=== PATIENT | male | born 1960 | race Caucasian/White ===

== ENCOUNTER 2018-11-09 06:51 | Inpatient (IN) | payer MEDICARE, BC, OTHER ==
[2018-11-09 07:33] LABS: ADD MAN DIFF? NO
[2018-11-09 07:43] LABS: ABNORMAL IP MESSAGE 1; BASOPHIL # 0.1 10^3/ul (0.0-0.1); BASOPHILS % 0.5 % (0.0-2.0); EOSINOPHILS # 0.5 10^3/ul (0.0-0.5); EOSINOPHILS % 3.6 % (0.0-7.0); HEMATOCRIT 24.4 % (42.0-52.0); HEMOGLOBIN 7.4 g/dl (14.0-18.0); LYMPHOCYTES # 1.2 10^3/ul (0.8-2.9); LYMPHOCYTES % 9.1 % (15.0-51.0); MEAN CORPUSCULAR HEMOGLOBIN 27.6 pg (29.0-33.0); MEAN CORPUSCULAR HGB CONC 30.3 g/dl (32.0-37.0); MEAN PLATELET VOLUME 9.9 fl (7.4-10.4); MONOCYTES % 7.1 % (0.0-11.0); NEUTROPHIL # 10.6 10^3/ul (1.6-7.5); PLATELET COUNT 621 10^3/UL (140-415); POSITIVE DIFF @See below; RED BLOOD COUNT 2.68 10^6/ul (4.70-6.10); RED CELL DISTRIBUTION WIDTH 23.9 % (11.5-14.5)
[2018-11-09 07:43] LABS: WHITE BLOOD COUNT 13.5 10^3/ul (4.8-10.8)
[2018-11-09 08:00] LABS: ALANINE AMINOTRANSFERASE 24 IU/L (13-69); ALBUMIN 3.6 g/dl (3.3-4.9); ALBUMIN/GLOBULIN RATIO 0.67; ALKALINE PHOSPHATASE 1457 IU/L (42-121); ANION GAP 15 (5-13); ASPARTATE AMINO TRANSFERASE 62 IU/L (15-46); BILIRUBIN,INDIRECT 0.6 mg/dl (0-1.1); BILIRUBIN,TOTAL 2.1 mg/dl (0.2-1.3); BLOOD UREA NITROGEN 54 mg/dl (7-20); CALCIUM 8.7 mg/dl (8.4-10.2); CARBON DIOXIDE 22 mmol/L (21-31); CHLORIDE 100 mmol/L (97-110); CREATININE 6.32 mg/dl (0.61-1.24); Estimated GFR 9 mL/min (>60); GLUCOSE 126 mg/dl (70-220); INR 1.03; PROTIME 13.6 Sec (11.9-14.9); PT RATIO 1.1; SODIUM 137 mmol/L (135-144); TOTAL PROTEIN 8.9 g/dl (6.1-8.1)
[2018-11-09 08:01] LABS: PARTIAL THROMBOPLASTIN TIME 38.9 Sec (23.0-35.0)
[2018-11-09 10:27] LABS: IMMEDIATE SPIN CROSSMATCH 1 2
[2018-11-09] MEDS ORDERED: ACETAMINOPHEN 325 MG TAB PO ×2 (11:30→14:30)
[2018-11-09] MEDS ORDERED: ONDANSETRON 4 MG INJ IV (11:30)
[2018-11-09 13:18] LABS: IRON 48 ug/dl (35-150)
[2018-11-09 13:27] LABS: % IRON SATURATION 24 % SAT (22-52); TOTAL IRON BINDING CAPACITY 204 ug/dl (241-421)
[2018-11-09 14:22] LABS: HAAIG REFLEX REFLEX FILED
[2018-11-09] MEDS ORDERED: NACL 0.9% 3 ML SYG IV (14:30)
[2018-11-09] MEDS ORDERED: HYDROCODONE/APAP (5/325) TAB PO (14:30)
[2018-11-09 14:35] LABS: LACTATE DEHYDROGENASE 851 IU/L (313-618)
[2018-11-09 15:08] LABS: HEPATITIS B SURFACE ANTIGEN NEGATIVE (NEGATIVE)
[2018-11-09 15:25] LABS: HEPATITIS B CORE ANTIBODY NEGATIVE (NEGATIVE); HEPATITIS C VIRAL ANTIBODY NEGATIVE (NEGATIVE)
[2018-11-09 15:41] LABS: RETICULOCYTE COUNT % 5.3 % (0.5-1.5)
[2018-11-09 15:41] LABS: RETICULOCYTE RBC 2.65
[2018-11-09 16:44] LABS: ALPHA FETOPROTEIN 1.08 IU/L (0.00-7.21)
[2018-11-09] MEDS: hydrALAzine 20 MG INJ IV (16:45)
[2018-11-09 16:50] LABS: B-TYPE NATRIURETIC PEPTIDE 105000 PG/ML (0-125)
[2018-11-09] MEDS: morphine 2 MG INJ IV (17:34)
[2018-11-09 17:36] LABS: CARCINOEMBRYONIC ANTIGEN 5.4 ng/ml (0.0-5.0)
[2018-11-09] MEDS: CALCIUM ACETATE 667 MG CAP PO (18:16)
[2018-11-09] MEDS ORDERED: IODIXANOL LOCM 100 ML BTL (20:34)
[2018-11-09] MEDS ORDERED: SOD CHLORIDE 0.9% 100 ML (20:34)
[2018-11-09] MEDS: LABETALOL 100 MG TAB PO (22:02)
[2018-11-10] MEDS: PANTOPRAZOLE (EC) 40 MG TAB PO (06:00)
[2018-11-10 07:03] LABS: ADD MAN DIFF? NO
[2018-11-10 07:14] LABS: WHITE BLOOD COUNT 13.8 10^3/ul (4.8-10.8)
[2018-11-10 07:15] LABS: BASOPHIL # 0.1 10^3/ul (0.0-0.1); BASOPHILS % 0.5 % (0.0-2.0); EOSINOPHILS # 0.4 10^3/ul (0.0-0.5); EOSINOPHILS % 2.8 % (0.0-7.0); HEMATOCRIT 27.1 % (42.0-52.0); HEMOGLOBIN 8.5 g/dl (14.0-18.0); LYMPHOCYTES # 0.9 10^3/ul (0.8-2.9); LYMPHOCYTES % 6.8 % (15.0-51.0); MEAN CORPUSCULAR HEMOGLOBIN 28.1 pg (29.0-33.0); MEAN CORPUSCULAR HGB CONC 31.4 g/dl (32.0-37.0); MEAN CORPUSCULAR VOLUME 89.4 fl (82.0-101.0); MEAN PLATELET VOLUME 9.7 fl (7.4-10.4); MONOCYTE # 0.9 10^3/ul (0.3-0.9); MONOCYTES % 6.3 % (0.0-11.0); NEUTROPHIL # 11.4 10^3/ul (1.6-7.5); PLATELET COUNT 510 10^3/UL (140-415); RED BLOOD COUNT 3.03 10^6/ul (4.70-6.10); RED CELL DISTRIBUTION WIDTH 20.7 % (11.5-14.5)
[2018-11-10 07:26] LABS: INR 1.13; PROTIME 14.6 Sec (11.9-14.9); PT RATIO 1.1
[2018-11-10 07:27] LABS: PARTIAL THROMBOPLASTIN TIME 36.6 Sec (23.0-35.0)
[2018-11-10 07:31] LABS: CHOL/HDL RATIO 11.9 RATIO; CHOLESTEROL 310 mg/dl (100-200); HDL CHOLESTEROL 26 mg/dl (28-71); LDL CHOLESTEROL,CALCULATED 260 mg/dl; MAGNESIUM 2.4 mg/dl (1.7-2.5); TRIGLYCERIDES 121 mg/dl (0-149)
[2018-11-10 07:31] LABS: PHOSPHORUS 10.1 mg/dl (2.5-4.9)
[2018-11-10 07:32] LABS: ALANINE AMINOTRANSFERASE 22 IU/L (13-69); ALBUMIN 3.1 g/dl (3.3-4.9); ALBUMIN/GLOBULIN RATIO 0.67; ALKALINE PHOSPHATASE 930 IU/L (42-121); ANION GAP 17 (5-13); ASPARTATE AMINO TRANSFERASE 45 IU/L (15-46); BILIRUBIN,INDIRECT 0.5 mg/dl (0-1.1); BILIRUBIN,TOTAL 2.5 mg/dl (0.2-1.3); BLOOD UREA NITROGEN 65 mg/dl (7-20); CALCIUM 8.3 mg/dl (8.4-10.2); CARBON DIOXIDE 19 mmol/L (21-31); CHLORIDE 102 mmol/L (97-110); CREATININE 7.33 mg/dl (0.61-1.24); Estimated GFR 8 mL/min (>60); GLUCOSE 83 mg/dl (70-220); POTASSIUM 5.6 mmol/L (3.5-5.1); SODIUM 138 mmol/L (135-144); TOTAL PROTEIN 7.7 g/dl (6.1-8.1)
[2018-11-10 07:49] LABS: FREE T4 (FREE THYROXINE) 1.95 ng/dl (0.64-1.79)
[2018-11-10] MEDS: CALCIUM ACETATE 667 MG CAP PO ×3 (07:55→17:55)
[2018-11-10 08:12] LABS: CANCER ANTIGEN 19-9 < 1.4 U/ml (0.0-37.0)
[2018-11-10] MEDS: NIFEdipine (XL) 30 MG TAB PO (08:35)
[2018-11-10] MEDS: AMLODIPINE 5 MG TAB PO (08:37)
[2018-11-10] MEDS: LABETALOL 100 MG TAB PO (08:38)
[2018-11-10 11:48] LABS: HAPTOGLOBIN <8 mg/dL (43-212)
[2018-11-10] MEDS ORDERED: PROPOFOL 200 MG INJ (13:20)
[2018-11-10] MEDS ORDERED: CEFAZOLIN 1 GM INJ (13:20)
[2018-11-10] MEDS ORDERED: PROPOFOL 40 ML (13:22)
[2018-11-10] MEDS ORDERED: FENTAnyl 50 MCG/ML VIAL (13:22)
[2018-11-10] MEDS ORDERED: LIDOCAINE 2% (SDV) 5 ML INJ (13:22)
[2018-11-10] MEDS ORDERED: MIDAZOLAM 1 MG/ML 2 ML INJ (13:22)
[2018-11-10] MEDS ORDERED: CEFAZOLIN 1 GM/50 ML (PMX) 0 ML IVPB (13:23)
[2018-11-10] MEDS ORDERED: LIDOCAINE 1% (MDV) 20 ML INJ (13:49)
[2018-11-10] MEDS: hydrALAzine 20 MG INJ IV (14:59)
[2018-11-10] MEDS ORDERED: MEPERIDINE 25 MG INJ IV (15:00)
[2018-11-10] MEDS ORDERED: FENTAnyl 50 MCG/ML VIAL IV (15:00)
[2018-11-10] MEDS ORDERED: ONDANSETRON 4 MG INJ IV (15:00)
[2018-11-10] MEDS ORDERED: HYDROmorphONE 1 MG/5 ML IV SYRINGE IV ×2 (15:00)
[2018-11-10] MEDS ORDERED: LABETALOL HCL 20MG INJ IV (15:00)
[2018-11-10] MEDS ORDERED: DIPHENHYDRAMINE 50 MG INJ IV (15:00)
[2018-11-10] MEDS: EPOETIN 10000 UNITS/1 ML INJ (ESRD) SC (16:35)
[2018-11-10] MEDS ORDERED: ALTEPLASE (CATHFLO) 2 MG INJ CATHETER (21:30)
[2018-11-10 22:44] LABS: ERYTHROPOIETIN 58.7 mIU/mL (2.6-18.5)
[2018-11-10 23:27] LABS: ALPHA-1-GLOBULINS 0.5 g/dL (0.2-0.3); ALPHA-2-GLOBULINS 0.6 g/dL (0.5-0.9); BETA 2 GLOBULINS 0.6 g/dL (0.2-0.5); BETA GLOBULINS 0.4 g/dL (0.4-0.6)
[2018-11-10] MEDS: ONDANSETRON 4 MG INJ IV (23:59)
[2018-11-11] MEDS: LABETALOL 100 MG TAB PO ×3 (00:29→21:00)
[2018-11-11 02:16] LABS: OCCULT BLOOD STOOL NEGATIVE (NEGATIVE)
[2018-11-11] MEDS: PANTOPRAZOLE (EC) 40 MG TAB PO (06:13)
[2018-11-11 06:46] LABS: ADD MAN DIFF? NO
[2018-11-11 06:49] LABS: WHITE BLOOD COUNT 14.1 10^3/ul (4.8-10.8)
[2018-11-11 06:49] LABS: BASOPHIL # 0.1 10^3/ul (0.0-0.1); BASOPHILS % 0.4 % (0.0-2.0); EOSINOPHILS # 0.2 10^3/ul (0.0-0.5); EOSINOPHILS % 1.3 % (0.0-7.0); HEMATOCRIT 27.6 % (42.0-52.0); HEMOGLOBIN 8.7 g/dl (14.0-18.0); LYMPHOCYTES # 0.9 10^3/ul (0.8-2.9); LYMPHOCYTES % 6.3 % (15.0-51.0); MEAN CORPUSCULAR HEMOGLOBIN 28.2 pg (29.0-33.0); MEAN CORPUSCULAR HGB CONC 31.5 g/dl (32.0-37.0); MEAN CORPUSCULAR VOLUME 89.6 fl (82.0-101.0); MONOCYTES % 7.4 % (0.0-11.0); NEUTROPHIL # 11.8 10^3/ul (1.6-7.5); PLATELET COUNT 506 10^3/UL (140-415); RED BLOOD COUNT 3.08 10^6/ul (4.70-6.10); RED CELL DISTRIBUTION WIDTH 20.5 % (11.5-14.5)
[2018-11-11 07:05] LABS: ALANINE AMINOTRANSFERASE 14 IU/L (13-69); ALBUMIN 3.1 g/dl (3.3-4.9); ALBUMIN/GLOBULIN RATIO 0.67; ALKALINE PHOSPHATASE 956 IU/L (42-121); ANION GAP 13 (5-13); ASPARTATE AMINO TRANSFERASE 43 IU/L (15-46); BILIRUBIN,INDIRECT 0.7 mg/dl (0-1.1); BILIRUBIN,TOTAL 2.6 mg/dl (0.2-1.3); BLOOD UREA NITROGEN 37 mg/dl (7-20); CALCIUM 8.2 mg/dl (8.4-10.2); CARBON DIOXIDE 24 mmol/L (21-31); CHLORIDE 102 mmol/L (97-110); CREATININE 4.75 mg/dl (0.61-1.24); Estimated GFR 13 mL/min (>60); GLUCOSE 86 mg/dl (70-220); POTASSIUM 4.4 mmol/L (3.5-5.1); SODIUM 139 mmol/L (135-144); TOTAL PROTEIN 7.7 g/dl (6.1-8.1)
[2018-11-11 07:17] LABS: MAGNESIUM 2.2 mg/dl (1.7-2.5)
[2018-11-11 07:17] LABS: PHOSPHORUS 7.2 mg/dl (2.5-4.9)
[2018-11-11] MEDS: NIFEdipine (XL) 30 MG TAB PO (09:00)
[2018-11-11] MEDS: AMLODIPINE 5 MG TAB PO (09:00)
[2018-11-12] MEDS: PANTOPRAZOLE (EC) 40 MG TAB PO (05:34)
[2018-11-12 05:59] LABS: WHITE BLOOD COUNT 11.3 10^3/ul (4.8-10.8)
[2018-11-12 05:59] LABS: ADD MAN DIFF? NO; BASOPHIL # 0.1 10^3/ul (0.0-0.1); BASOPHILS % 0.5 % (0.0-2.0); EOSINOPHILS # 0.4 10^3/ul (0.0-0.5); EOSINOPHILS % 3.3 % (0.0-7.0); HEMATOCRIT 27.4 % (42.0-52.0); HEMOGLOBIN 8.6 g/dl (14.0-18.0); LYMPHOCYTES % 9.2 % (15.0-51.0); MEAN CORPUSCULAR HEMOGLOBIN 28.5 pg (29.0-33.0); MEAN CORPUSCULAR HGB CONC 31.4 g/dl (32.0-37.0); MEAN CORPUSCULAR VOLUME 90.7 fl (82.0-101.0); MEAN PLATELET VOLUME 9.6 fl (7.4-10.4); MONOCYTES % 8.4 % (0.0-11.0); NEUTROPHIL # 8.8 10^3/ul (1.6-7.5); NEUTROPHILS % 77.9 % (39.0-77.0); PLATELET COUNT 460 10^3/UL (140-415); RED BLOOD COUNT 3.02 10^6/ul (4.70-6.10); RED CELL DISTRIBUTION WIDTH 19.8 % (11.5-14.5)
[2018-11-12 06:54] LABS: PHOSPHORUS 8.9 mg/dl (2.5-4.9)
[2018-11-12 06:54] LABS: MAGNESIUM 2.2 mg/dl (1.7-2.5)
[2018-11-12 07:13] LABS: ALANINE AMINOTRANSFERASE 22 IU/L (13-69); ALBUMIN 3.1 g/dl (3.3-4.9); ALKALINE PHOSPHATASE 1013 IU/L (42-121); ANION GAP 14 (5-13); BILIRUBIN,INDIRECT 0.6 mg/dl (0-1.1); BILIRUBIN,TOTAL 2.4 mg/dl (0.2-1.3); BLOOD UREA NITROGEN 49 mg/dl (7-20); CALCIUM 8.4 mg/dl (8.4-10.2); CARBON DIOXIDE 21 mmol/L (21-31); CHLORIDE 101 mmol/L (97-110); CREATININE 5.75 mg/dl (0.61-1.24); Estimated GFR 10 mL/min (>60); GLUCOSE 84 mg/dl (70-220); POTASSIUM 5.2 mmol/L (3.5-5.1); SODIUM 136 mmol/L (135-144); TOTAL PROTEIN 7.5 g/dl (6.1-8.1)
[2018-11-12 07:17] LABS: ASPARTATE AMINO TRANSFERASE 43 IU/L (15-46)
[2018-11-12] MEDS: LABETALOL 100 MG TAB PO ×2 (08:36→21:00)
[2018-11-12] MEDS: AMLODIPINE 5 MG TAB PO (08:36)
[2018-11-12] MEDS ORDERED: LOPERAMIDE 2 MG CAP PO (10:30)
[2018-11-12] MEDS: NIFEdipine (XL) 30 MG TAB PO (10:42)
[2018-11-12] MEDS: LOPERAMIDE 2 MG CAP PO (11:44)
[2018-11-13] MEDS: PANTOPRAZOLE (EC) 40 MG TAB PO (05:22)
[2018-11-13 06:12] LABS: ADD MAN DIFF? NO
[2018-11-13 06:34] LABS: BASOPHIL # 0.1 10^3/ul (0.0-0.1); BASOPHILS % 0.4 % (0.0-2.0); EOSINOPHILS # 0.4 10^3/ul (0.0-0.5); EOSINOPHILS % 3.7 % (0.0-7.0); HEMATOCRIT 27.5 % (42.0-52.0); HEMOGLOBIN 8.8 g/dl (14.0-18.0); LYMPHOCYTES # 0.9 10^3/ul (0.8-2.9); LYMPHOCYTES % 8.1 % (15.0-51.0); MEAN CORPUSCULAR HEMOGLOBIN 28.4 pg (29.0-33.0); MEAN CORPUSCULAR VOLUME 88.7 fl (82.0-101.0); MONOCYTES % 8.5 % (0.0-11.0); NEUTROPHIL # 8.8 10^3/ul (1.6-7.5); NEUTROPHILS % 78.7 % (39.0-77.0); PLATELET COUNT 469 10^3/UL (140-415); RED CELL DISTRIBUTION WIDTH 18.9 % (11.5-14.5)
[2018-11-13 06:34] LABS: WHITE BLOOD COUNT 11.2 10^3/ul (4.8-10.8)
[2018-11-13 07:05] LABS: MAGNESIUM 2.2 mg/dl (1.7-2.5)
[2018-11-13 07:11] LABS: ALANINE AMINOTRANSFERASE 17 IU/L (13-69); ALBUMIN 3.3 g/dl (3.3-4.9); ALBUMIN/GLOBULIN RATIO 0.75; ALKALINE PHOSPHATASE 1045 IU/L (42-121); ANION GAP 21 (5-13); ASPARTATE AMINO TRANSFERASE 43 IU/L (15-46); BILIRUBIN,INDIRECT 0.5 mg/dl (0-1.1); BLOOD UREA NITROGEN 60 mg/dl (7-20); CARBON DIOXIDE 19 mmol/L (21-31); CHLORIDE 97 mmol/L (97-110); CREATININE 7.03 mg/dl (0.61-1.24); Estimated GFR 8 mL/min (>60); GLUCOSE 84 mg/dl (70-220); SODIUM 137 mmol/L (135-144); TOTAL PROTEIN 7.7 g/dl (6.1-8.1)
[2018-11-13] MEDS: NIFEdipine (XL) 30 MG TAB PO (08:46)
[2018-11-13] MEDS: AMLODIPINE 5 MG TAB PO (08:47)
[2018-11-13] MEDS: LABETALOL 100 MG TAB PO (08:47)
[2018-11-13] MEDS: morphine 2 MG INJ IV (12:05)
[2018-11-13] MEDS ORDERED: EPOETIN 10000 UNITS/1 ML INJ (ESRD) SC (17:00)
[2018-11-14] MEDS: LABETALOL 100 MG TAB PO ×2 (00:13→09:14)
[2018-11-14] MEDS: morphine 2 MG INJ IV (00:13)
[2018-11-14] MEDS: HEPARIN 5,000 UNIT/1 ML VIAL SC ×2 (00:20→09:12)
[2018-11-14] MEDS: hydrALAzine 20 MG INJ IV (02:21)
[2018-11-14] MEDS: AMLODIPINE 5 MG TAB PO (09:13)
[2018-11-14] MEDS: NIFEdipine (XL) 30 MG TAB PO (09:14)
[2018-11-14] MEDS: CALCIUM ACETATE 667 MG CAP PO ×2 (09:17→13:02)
[2018-11-14 14:07] LABS: ANA SCREEN NEGATIVE (NEGATIVE)
[2018-11-15 11:02] LABS: MITOCHONDRIAL TB NEGATIVE (NEGATIVE); SMOOTH MUSCLE AB SCREEN NEGATIVE (NEGATIVE)
[2018-11-15 19:37] LABS: NIL 0.01 IU/mL; QUANTIFERON(R)-TB GOLD POSITIVE (NEGATIVE); TB-NIL 1.22 IU/mL; TB2-NIL 1.65 IU/mL
[2018-11-16 18:46] LABS: ALKALINE PHOSPHATASE 1102 U/L (40-115); BONE ISOENZYMES 46 % (28-66); INTESTINAL ISOENZYMES 0 % (1-24); LIVER ISOENZYMES 54 % (25-69); PLACENTAL ISOENZYMES 0 % (0)
== END 2018-11-14 15:00 | disposition home or self-care (01) | DRG 432 ==
LOC: 2NE 11-11 00:52 → E/R 06:51 → TEL 11:04
PROC: 30233N1 Transfusion of Nonautologous Red Blood Cells into Peripheral Vein, Percutaneous Approach (ICD-10-PCS; principal; 2018-11-09)
PROC: 5A1D70Z Performance of Urinary Filtration, Intermittent, Less than 6 Hours Per Day (ICD-10-PCS; 2018-11-10)
PROC: 07DR3ZX Extraction of Iliac Bone Marrow, Percutaneous Approach, Diagnostic (ICD-10-PCS; 2018-11-10)
PROC: 5A1D70Z Performance of Urinary Filtration, Intermittent, Less than 6 Hours Per Day (ICD-10-PCS; 2018-11-13)
DX: K74.60 Unspecified cirrhosis of liver (principal); N18.6 End stage renal disease; I13.2 Hypertensive heart and chronic kidney disease with heart failure and with stage 5 chronic kidney disease, or end stage renal disease; D63.8 Anemia in other chronic diseases classified elsewhere; I50.9 Heart failure, unspecified; E11.22 Type 2 diabetes mellitus with diabetic chronic kidney disease; R63.4 Abnormal weight loss; Z68.22 Body mass index [BMI] 22.0-22.9, adult; D47.3 Essential (hemorrhagic) thrombocythemia; E11.51 Type 2 diabetes mellitus with diabetic peripheral angiopathy without gangrene; I25.10 Atherosclerotic heart disease of native coronary artery without angina pectoris; E78.5 Hyperlipidemia, unspecified; R91.8 Other nonspecific abnormal finding of lung field; R60.0 Localized edema; K52.9 Noninfective gastroenteritis and colitis, unspecified; Z88.0 Allergy status to penicillin; Z99.2 Dependence on renal dialysis
CPT/HCPCS: 36415; 36430; 71045; 71270; 74178; 74181; 76705; 77012; 80053; 80061; 82105; 82270; 82378; 82607; 82668; 82728; 82746; 83010; 83036; 83540; 83615; 83735; 83880; 84080; 84100; 84155; 84165; 84439; 84443; 85025; 85045; 85610; 85730; 86038; 86255; 86301; 86480; 86674; 86704; 86709; 86803; 86850; 86880; 86885; 86900; 86901; 86920; 87045; 87075; 87081; 87177; 87340; 88305; 88311; 88313; 90935; 93306; 93970; 99217; 99285-25

== ENCOUNTER 2018-11-29 11:24 | Inpatient (IN) | payer MEDICARE, BC ==
[2018-11-29 12:20] LABS: ADD MAN DIFF? NO
[2018-11-29 12:25] LABS: BASOPHIL # 0.1 10^3/ul (0.0-0.1); BASOPHILS % 0.3 % (0.0-2.0); EOSINOPHILS # 0.2 10^3/ul (0.0-0.5); EOSINOPHILS % 1.2 % (0.0-7.0); HEMATOCRIT 33.7 % (42.0-52.0); HEMOGLOBIN 10.8 g/dl (14.0-18.0); LYMPHOCYTES # 0.7 10^3/ul (0.8-2.9); LYMPHOCYTES % 3.7 % (15.0-51.0); MEAN CORPUSCULAR HEMOGLOBIN 28.3 pg (29.0-33.0); MEAN CORPUSCULAR VOLUME 88.5 fl (82.0-101.0); MEAN PLATELET VOLUME 9.8 fl (7.4-10.4); MONOCYTE # 0.8 10^3/ul (0.3-0.9); MONOCYTES % 3.9 % (0.0-11.0); NEUTROPHIL # 17.1 10^3/ul (1.6-7.5); NEUTROPHILS % 89.9 % (39.0-77.0); NUCLEATED RED BLOOD CELLS # 0.1 10^3/ul (0.0-0.0); NUCLEATED RED BLOOD CELLS% 0.3 /100WBC (0.0-0.0); PLATELET COUNT 327 10^3/UL (140-415); RED BLOOD COUNT 3.81 10^6/ul (4.70-6.10); RED CELL DISTRIBUTION WIDTH 18.6 % (11.5-14.5)
[2018-11-29 12:25] LABS: WHITE BLOOD COUNT 19.1 10^3/ul (4.8-10.8)
[2018-11-29 12:45] LABS: ALANINE AMINOTRANSFERASE 21 IU/L (13-69); ALBUMIN 3.7 g/dl (3.3-4.9); ALBUMIN/GLOBULIN RATIO 0.71; ALKALINE PHOSPHATASE 970 IU/L (42-121); ANION GAP 25 (5-13); ASPARTATE AMINO TRANSFERASE 31 IU/L (15-46); BILIRUBIN,INDIRECT 0.2 mg/dl (0-1.1); BILIRUBIN,TOTAL 1.8 mg/dl (0.2-1.3); BLOOD UREA NITROGEN 110 mg/dl (7-20); CALCIUM 8.3 mg/dl (8.4-10.2); CHLORIDE 101 mmol/L (97-110); CREATININE 12.69 mg/dl (0.61-1.24); Estimated GFR 4 mL/min (>60); SODIUM 135 mmol/L (135-144); TOTAL PROTEIN 8.9 g/dl (6.1-8.1)
[2018-11-29 12:57] LABS: TROPONIN-I < 0.012 ng/ml (0.000-0.120)
[2018-11-29 13:00] LABS: CARBON DIOXIDE 9 mmol/L (21-31); POTASSIUM 7.7 mmol/L (3.5-5.1)
[2018-11-29 13:01] LABS: GLUCOSE 52 mg/dl (70-220)
[2018-11-29] MEDS: CA CHLORIDE 10% 10 ML SYRINGE IV (13:28)
[2018-11-29] MEDS: NA BICARBONATE 8.4% 50 ML SYG IV (13:28)
[2018-11-29] MEDS: SODIUM POLYSTYRENE 15 GM KIT (POWDER + SORBITOL) PO (13:37)
[2018-11-29] MEDS ORDERED: DOCUSATE SODIUM 100 MG CAP PO (16:00)
[2018-11-29] MEDS ORDERED: ALBUTEROL/IPRATROPIUM (NEB) 3 ML AMP HHN (16:00)
[2018-11-29] MEDS ORDERED: MAGNESIUM HYDROXIDE 30ML CUP PO (16:00)
[2018-11-29] MEDS ORDERED: NITROGLYCERIN (SL) 0.4 MG TAB SL (16:00)
[2018-11-29] MEDS ORDERED: METOCLOPRAMIDE 5 MG TAB PO (16:00)
[2018-11-29] MEDS ORDERED: HYDROCODONE/APAP (5/325) TAB PO (16:00)
[2018-11-29] MEDS ORDERED: NACL 0.9% 3 ML SYG IV (16:00)
[2018-11-29] MEDS ORDERED: morphine 2 MG INJ IV (16:00)
[2018-11-29] MEDS ORDERED: LORAZEPAM 2 MG INJ IV (16:00)
[2018-11-29 16:04] LABS: HAAIG REFLEX REFLEX FILED
[2018-11-29 16:44] LABS: HEPATITIS B SURFACE ANTIGEN NEGATIVE (NEGATIVE)
[2018-11-29] MEDS ORDERED: LEVOFLOXACIN 250MG/D5W (PMX) 50 ML IVPB (17:00)
[2018-11-29 17:02] LABS: HEPATITIS B CORE ANTIBODY NEGATIVE (NEGATIVE); HEPATITIS C VIRAL ANTIBODY NEGATIVE (NEGATIVE)
[2018-11-29 17:50] LABS: LACTIC ACID 0.8 mmol/L (0.5-2.0)
[2018-11-29 17:54] LABS: HEMOGLOBIN A1C 4.3 % (0-5.9)
[2018-11-29 18:19] LABS: FREE T4 (FREE THYROXINE) 1.31 ng/dl (0.64-1.79)
[2018-11-29 18:36] LABS: INR 1.23; PROTIME 15.6 Sec (11.9-14.9); PT RATIO 1.2
[2018-11-29 18:37] LABS: PARTIAL THROMBOPLASTIN TIME 44.2 Sec (23.0-35.0)
[2018-11-29] MEDS: LOPERAMIDE 2 MG CAP PO (18:54)
[2018-11-29] MEDS: CALCIUM ACETATE 667 MG CAP PO (18:55)
[2018-11-29] MEDS: HEPARIN 1000 UNITS/ML 10 ML INJ CATHETER (18:57)
[2018-11-29] MEDS: hydrALAzine 20 MG INJ IV (19:52)
[2018-11-29] MEDS: LEVOFLOXACIN 250MG/D5W (PMX) 50 ML IVPB (19:53)
[2018-11-29] MEDS: LABETALOL 100 MG TAB PO (20:25)
[2018-11-30 05:35] LABS: ABNORMAL IP MESSAGE 1; HEMATOCRIT 35.1 % (42.0-52.0); HEMOGLOBIN 11.1 g/dl (14.0-18.0); MEAN CORPUSCULAR HEMOGLOBIN 27.3 pg (29.0-33.0); MEAN CORPUSCULAR HGB CONC 31.6 g/dl (32.0-37.0); MEAN CORPUSCULAR VOLUME 86.2 fl (82.0-101.0); MEAN PLATELET VOLUME 10.1 fl (7.4-10.4); NUCLEATED RED BLOOD CELLS% 0.2 /100WBC (0.0-0.0); PLATELET COUNT 273 10^3/UL (140-415); POSITIVE DIFF @See below; RED BLOOD COUNT 4.07 10^6/ul (4.70-6.10); RED CELL DISTRIBUTION WIDTH 18.8 % (11.5-14.5)
[2018-11-30 05:35] LABS: WHITE BLOOD COUNT 27.1 10^3/ul (4.8-10.8)
[2018-11-30 05:46] LABS: ADD MAN DIFF? YES
[2018-11-30 05:49] LABS: HEMOGLOBIN A1C 4.4 % (0-5.9)
[2018-11-30] MEDS: PANTOPRAZOLE 40 MG INJ IV (05:53)
[2018-11-30 06:09] LABS: ANION GAP 17 (5-13); BLOOD UREA NITROGEN 63 mg/dl (7-20); CALCIUM 8.2 mg/dl (8.4-10.2); CARBON DIOXIDE 18 mmol/L (21-31); CHLORIDE 102 mmol/L (97-110); CREATININE 8.67 mg/dl (0.61-1.24); Estimated GFR 6 mL/min (>60); POTASSIUM 4.7 mmol/L (3.5-5.1); SODIUM 137 mmol/L (135-144)
[2018-11-30 06:12] LABS: CHOL/HDL RATIO 7.6 RATIO; HDL CHOLESTEROL 34 mg/dl (28-71); LDL CHOLESTEROL,CALCULATED 194 mg/dl; TRIGLYCERIDES 162 mg/dl (0-149)
[2018-11-30 06:12] LABS: CHOLESTEROL 260 mg/dl (100-200)
[2018-11-30 06:13] LABS: GLUCOSE 34 mg/dl (70-220)
[2018-11-30] MEDS: CALCIUM ACETATE 667 MG CAP PO ×3 (07:35→17:00)
[2018-11-30 08:14] LABS: ANISOCYTOSIS 2+ (0-0); BURR CELLS 1+ (0-0); ERYTHROBLAST% (NRBC) (M) 1 % (0-0); HYPOCHROMASIA 1+ (0-0); LYMPHOCYTES #M 0.8 10^3/ul (0.8-2.9); LYMPHOCYTES % (M) 3 % (15-51); MONOCYTE #M 0.2 10^3/ul (0.3-0.9); MONOCYTES % (M) 1 % (0-11); PLATELET ESTIMATE NORMAL; POIKILOCYTOSIS 1+ (0-0); POLYCHROMASIA 3+ (0-0); RBC MORPHOLOGY COMMENT @See below; SEGMENTED NEUTROPHILS (M) % 96 % (39-77); SMUDGE%M 4 % (0-0); TARGET CELLS 1+ (0-0); WBC MORPHOLOGY COMMENT @See below
[2018-11-30] MEDS: DEXTROSE 50% 50 ML SYRINGE IV (08:16)
[2018-11-30] MEDS: FUROSEMIDE 40 MG TAB PO (08:40)
[2018-11-30] MEDS: LABETALOL 100 MG TAB PO ×2 (08:40→20:44)
[2018-11-30] MEDS: LOPERAMIDE 2 MG CAP PO (08:40)
[2018-11-30] MEDS: NIFEdipine (XL) 30 MG TAB PO (08:40)
[2018-11-30] MEDS: AMLODIPINE 5 MG TAB PO (08:41)
[2018-11-30 14:05] LABS: ADD UMIC YES; UR ASCORBIC ACID NEGATIVE (NEGATIVE); UR BACTERIA FEW /HPF (NONE SEEN); UR BILIRUBIN (Dip) NEGATIVE (NEGATIVE); UR BLOOD (Dip) 2+ mg/dL (NEGATIVE); UR CLARITY TURBID (CLEAR); UR COLOR AMBER (YELLOW); UR GLUCOSE (Dip) NEGATIVE (NEGATIVE); UR KETONES (Dip) NEGATIVE (NEGATIVE); UR LEUKOCYTE ESTERASE (Dip) 3+ Leu/ul (NEGATIVE); UR NITRITE (Dip) NEGATIVE (NEGATIVE); UR NONSQUAMOUS EPITHELIAL CELL 2 /HPF (NONE SEEN); UR RBC 96 /HPF (0-5); UR SPECIFIC GRAVITY (Dip) 1.013 (1.003-1.030); UR TOTAL PROTEIN (Dip) 3+ mg/dl (NEGATIVE); UR UROBILINOGEN (Dip) NEGATIVE (NEGATIVE); UR WBC > 182 /HPF (0-5)
[2018-11-30] MEDS: ACETAMINOPHEN 325 MG TAB PO (17:30)
[2018-11-30] MEDS: HEPARIN 1000 UNITS/ML 10 ML INJ CATHETER (19:18)
[2018-11-30] MEDS: ONDANSETRON 4 MG INJ IV (20:45)
[2018-12-01 05:37] LABS: ADD MAN DIFF? NO
[2018-12-01 05:43] LABS: WHITE BLOOD COUNT 26.2 10^3/ul (4.8-10.8)
[2018-12-01 05:43] LABS: ABNORMAL IP MESSAGE 1; BASOPHIL # 0.1 10^3/ul (0.0-0.1); BASOPHILS % 0.3 % (0.0-2.0); HEMATOCRIT 32.6 % (42.0-52.0); HEMOGLOBIN 10.3 g/dl (14.0-18.0); LYMPHOCYTES # 0.5 10^3/ul (0.8-2.9); LYMPHOCYTES % 1.8 % (15.0-51.0); MEAN CORPUSCULAR HGB CONC 31.6 g/dl (32.0-37.0); MEAN CORPUSCULAR VOLUME 88.6 fl (82.0-101.0); MONOCYTES % 3.9 % (0.0-11.0); NEUTROPHIL # 24.4 10^3/ul (1.6-7.5); NUCLEATED RED BLOOD CELLS # 0.1 10^3/ul (0.0-0.0); NUCLEATED RED BLOOD CELLS% 0.2 /100WBC (0.0-0.0); PLATELET COUNT 285 10^3/UL (140-415); POSITIVE DIFF @See below; RED BLOOD COUNT 3.68 10^6/ul (4.70-6.10); RED CELL DISTRIBUTION WIDTH 18.9 % (11.5-14.5)
[2018-12-01 06:01] LABS: ANION GAP 12 (5-13); BLOOD UREA NITROGEN 30 mg/dl (7-20); CALCIUM 7.9 mg/dl (8.4-10.2); CARBON DIOXIDE 25 mmol/L (21-31); CHLORIDE 101 mmol/L (97-110); CREATININE 4.88 mg/dl (0.61-1.24); Estimated GFR 12 mL/min (>60); GLUCOSE 82 mg/dl (70-220); SODIUM 138 mmol/L (135-144)
[2018-12-01] MEDS: PANTOPRAZOLE (EC) 40 MG TAB PO (06:13)
[2018-12-01] MEDS: FUROSEMIDE 40 MG TAB PO (09:21)
[2018-12-01] MEDS: CALCIUM ACETATE 667 MG CAP PO ×3 (09:21→18:02)
[2018-12-01] MEDS: LABETALOL 100 MG TAB PO ×2 (09:21→21:56)
[2018-12-01] MEDS: NIFEdipine (XL) 30 MG TAB PO (09:21)
[2018-12-01] MEDS: NACL 3% FOR INHALATION 15 ML NEBU NEB (09:22)
[2018-12-01] MEDS: AMLODIPINE 5 MG TAB PO (09:22)
[2018-12-01] MEDS: CALCIUM GLUCONATE 10% 2 GM in DEXTROSE 5% 100 ML IVPB (09:38)
[2018-12-01] MEDS: LEVOFLOXACIN 250MG/D5W (PMX) 50 ML IVPB (21:56)
[2018-12-02 05:44] LABS: ADD MAN DIFF? NO
[2018-12-02 05:46] LABS: WHITE BLOOD COUNT 14.9 10^3/ul (4.8-10.8)
[2018-12-02 05:46] LABS: BASOPHILS % 0.2 % (0.0-2.0); EOSINOPHILS # 0.1 10^3/ul (0.0-0.5); EOSINOPHILS % 0.4 % (0.0-7.0); HEMATOCRIT 28.5 % (42.0-52.0); HEMOGLOBIN 8.9 g/dl (14.0-18.0); LYMPHOCYTES # 0.8 10^3/ul (0.8-2.9); LYMPHOCYTES % 5.2 % (15.0-51.0); MEAN CORPUSCULAR HEMOGLOBIN 27.6 pg (29.0-33.0); MEAN CORPUSCULAR HGB CONC 31.2 g/dl (32.0-37.0); MEAN CORPUSCULAR VOLUME 88.2 fl (82.0-101.0); MONOCYTE # 0.9 10^3/ul (0.3-0.9); MONOCYTES % 6.2 % (0.0-11.0); NEUTROPHILS % 87.3 % (39.0-77.0); NUCLEATED RED BLOOD CELLS% 0.1 /100WBC (0.0-0.0); PLATELET COUNT 261 10^3/UL (140-415); RED BLOOD COUNT 3.23 10^6/ul (4.70-6.10); RED CELL DISTRIBUTION WIDTH 18.4 % (11.5-14.5)
[2018-12-02] MEDS: PANTOPRAZOLE (EC) 40 MG TAB PO (06:11)
[2018-12-02 06:25] LABS: ANION GAP 12 (5-13); BLOOD UREA NITROGEN 43 mg/dl (7-20); CALCIUM 8.1 mg/dl (8.4-10.2); CARBON DIOXIDE 24 mmol/L (21-31); CHLORIDE 99 mmol/L (97-110); CREATININE 6.08 mg/dl (0.61-1.24); Estimated GFR 10 mL/min (>60); GLUCOSE 110 mg/dl (70-220); POTASSIUM 4.5 mmol/L (3.5-5.1); SODIUM 135 mmol/L (135-144)
[2018-12-02] MEDS: CALCIUM ACETATE 667 MG CAP PO ×3 (10:01→18:02)
[2018-12-02] MEDS: LABETALOL 100 MG TAB PO ×2 (10:03→20:47)
[2018-12-02] MEDS: AMLODIPINE 5 MG TAB PO (10:04)
[2018-12-02] MEDS: NIFEdipine (XL) 30 MG TAB PO (10:04)
[2018-12-02] MEDS: FUROSEMIDE 40 MG TAB PO (10:05)
[2018-12-02] MEDS ORDERED: DIPHENHYDRAMINE 25 MG CAP PO (13:00)
[2018-12-02] MEDS: CEFEPIME 1GM/50 ML (PMX) 50 ML IVPB (15:17)
[2018-12-03 05:15] LABS: ADD MAN DIFF? NO
[2018-12-03 05:24] LABS: BASOPHIL # 0.1 10^3/ul (0.0-0.1); BASOPHILS % 0.4 % (0.0-2.0); EOSINOPHILS # 0.2 10^3/ul (0.0-0.5); EOSINOPHILS % 1.5 % (0.0-7.0); HEMATOCRIT 28.1 % (42.0-52.0); HEMOGLOBIN 8.9 g/dl (14.0-18.0); LYMPHOCYTES # 0.7 10^3/ul (0.8-2.9); LYMPHOCYTES % 5.5 % (15.0-51.0); MEAN CORPUSCULAR HEMOGLOBIN 27.4 pg (29.0-33.0); MEAN CORPUSCULAR HGB CONC 31.7 g/dl (32.0-37.0); MEAN CORPUSCULAR VOLUME 86.5 fl (82.0-101.0); MEAN PLATELET VOLUME 10.1 fl (7.4-10.4); MONOCYTE # 0.9 10^3/ul (0.3-0.9); MONOCYTES % 7.1 % (0.0-11.0); NEUTROPHILS % 84.7 % (39.0-77.0); PLATELET COUNT 254 10^3/UL (140-415); RED BLOOD COUNT 3.25 10^6/ul (4.70-6.10); RED CELL DISTRIBUTION WIDTH 17.9 % (11.5-14.5)
[2018-12-03] MEDS: PANTOPRAZOLE (EC) 40 MG TAB PO (06:05)
[2018-12-03 07:13] LABS: ANION GAP 13 (5-13); BLOOD UREA NITROGEN 59 mg/dl (7-20); CALCIUM 8.2 mg/dl (8.4-10.2); CARBON DIOXIDE 22 mmol/L (21-31); CHLORIDE 96 mmol/L (97-110); CREATININE 6.89 mg/dl (0.61-1.24); Estimated GFR 8 mL/min (>60); GLUCOSE 99 mg/dl (70-220); POTASSIUM 4.9 mmol/L (3.5-5.1); SODIUM 131 mmol/L (135-144)
[2018-12-03] MEDS: FUROSEMIDE 40 MG TAB PO (09:02)
[2018-12-03] MEDS: CALCIUM ACETATE 667 MG CAP PO ×3 (09:02→17:01)
[2018-12-03] MEDS: LABETALOL 100 MG TAB PO ×2 (09:05→20:52)
[2018-12-03] MEDS: NIFEdipine (XL) 30 MG TAB PO (09:05)
[2018-12-03] MEDS: AMLODIPINE 5 MG TAB PO (09:05)
[2018-12-03] MEDS ORDERED: GENTAMICIN IV PER PHARMACY XX (11:30)
[2018-12-03] MEDS: GENTAMICIN 100 MG/50 ML NS IVPB (14:21)
[2018-12-03] MEDS: CEFEPIME 1GM/50 ML (PMX) 50 ML IVPB (15:20)
[2018-12-03] MEDS: ONDANSETRON 4 MG INJ IV (15:54)
[2018-12-04] MEDS: PANTOPRAZOLE (EC) 40 MG TAB PO (06:05)
[2018-12-04 06:15] LABS: ADD MAN DIFF? NO
[2018-12-04 06:27] LABS: WHITE BLOOD COUNT 13.7 10^3/ul (4.8-10.8)
[2018-12-04 06:27] LABS: BASOPHILS % 0.3 % (0.0-2.0); EOSINOPHILS # 0.3 10^3/ul (0.0-0.5); HEMOGLOBIN 9.1 g/dl (14.0-18.0); LYMPHOCYTES # 0.8 10^3/ul (0.8-2.9); LYMPHOCYTES % 5.6 % (15.0-51.0); MEAN CORPUSCULAR HEMOGLOBIN 27.7 pg (29.0-33.0); MEAN CORPUSCULAR HGB CONC 32.5 g/dl (32.0-37.0); MEAN CORPUSCULAR VOLUME 85.4 fl (82.0-101.0); MEAN PLATELET VOLUME 10.7 fl (7.4-10.4); MONOCYTE # 0.9 10^3/ul (0.3-0.9); MONOCYTES % 6.9 % (0.0-11.0); NEUTROPHIL # 11.6 10^3/ul (1.6-7.5); NEUTROPHILS % 84.6 % (39.0-77.0); PLATELET COUNT 276 10^3/UL (140-415); RED BLOOD COUNT 3.28 10^6/ul (4.70-6.10); RED CELL DISTRIBUTION WIDTH 17.5 % (11.5-14.5)
[2018-12-04 06:48] LABS: ANION GAP 14 (5-13); BLOOD UREA NITROGEN 70 mg/dl (7-20); CALCIUM 7.9 mg/dl (8.4-10.2); CARBON DIOXIDE 22 mmol/L (21-31); CHLORIDE 95 mmol/L (97-110); CREATININE 7.85 mg/dl (0.61-1.24); Estimated GFR 7 mL/min (>60); GLUCOSE 74 mg/dl (70-220); POTASSIUM 5.1 mmol/L (3.5-5.1); SODIUM 131 mmol/L (135-144)
[2018-12-04] MEDS: CALCIUM ACETATE 667 MG CAP PO ×3 (08:00→18:52)
[2018-12-04] MEDS: AMLODIPINE 5 MG TAB PO ×2 (09:00→13:38)
[2018-12-04] MEDS: NIFEdipine (XL) 30 MG TAB PO ×2 (09:00→13:39)
[2018-12-04] MEDS: FUROSEMIDE 40 MG TAB PO ×2 (09:00→13:39)
[2018-12-04] MEDS: LABETALOL 100 MG TAB PO ×3 (09:00→20:25)
[2018-12-04] MEDS ORDERED: GENTAMICIN 60 MG in SOD CHLORIDE 0.9% 50 ML IVPB (09:00)
[2018-12-04] MEDS: HEPARIN 1000 UNITS/ML 10 ML INJ CATHETER (11:45)
[2018-12-04] MEDS: hydrALAzine 20 MG INJ IV (23:41)
[2018-12-05] MEDS: PANTOPRAZOLE (EC) 40 MG TAB PO (06:15)
[2018-12-05 06:16] LABS: ADD MAN DIFF? NO
[2018-12-05 06:22] LABS: ABNORMAL IP MESSAGE 1; BASOPHILS % 0.3 % (0.0-2.0); EOSINOPHILS # 0.3 10^3/ul (0.0-0.5); EOSINOPHILS % 2.4 % (0.0-7.0); HEMATOCRIT 32.2 % (42.0-52.0); HEMOGLOBIN 10.2 g/dl (14.0-18.0); LYMPHOCYTES # 0.6 10^3/ul (0.8-2.9); LYMPHOCYTES % 4.2 % (15.0-51.0); MEAN CORPUSCULAR HEMOGLOBIN 27.3 pg (29.0-33.0); MEAN CORPUSCULAR HGB CONC 31.7 g/dl (32.0-37.0); MEAN CORPUSCULAR VOLUME 86.3 fl (82.0-101.0); MEAN PLATELET VOLUME 10.1 fl (7.4-10.4); MONOCYTE # 0.9 10^3/ul (0.3-0.9); NEUTROPHIL # 11.4 10^3/ul (1.6-7.5); NEUTROPHILS % 85.6 % (39.0-77.0); PLATELET COUNT 283 10^3/UL (140-415); POSITIVE DIFF @See below; RED BLOOD COUNT 3.73 10^6/ul (4.70-6.10); RED CELL DISTRIBUTION WIDTH 17.6 % (11.5-14.5)
[2018-12-05 06:22] LABS: WHITE BLOOD COUNT 13.3 10^3/ul (4.8-10.8)
[2018-12-05 06:45] LABS: ANION GAP 8 (5-13); BLOOD UREA NITROGEN 37 mg/dl (7-20); CALCIUM 7.7 mg/dl (8.4-10.2); CARBON DIOXIDE 31 mmol/L (21-31); CHLORIDE 95 mmol/L (97-110); CREATININE 4.93 mg/dl (0.61-1.24); Estimated GFR 12 mL/min (>60); GLUCOSE 74 mg/dl (70-220); POTASSIUM 4.3 mmol/L (3.5-5.1); SODIUM 134 mmol/L (135-144)
[2018-12-05] MEDS: CALCIUM ACETATE 667 MG CAP PO ×2 (08:26→11:54)
[2018-12-05] MEDS: FUROSEMIDE 40 MG TAB PO (08:29)
[2018-12-05] MEDS: AMLODIPINE 5 MG TAB PO (08:30)
[2018-12-05] MEDS: LABETALOL 100 MG TAB PO (08:30)
[2018-12-05] MEDS: NIFEdipine (XL) 30 MG TAB PO (08:31)
[2018-12-06] MEDS ORDERED: MANNITOL 20% 500 ML (23:07)
[2018-12-06] MEDS ORDERED: HEPARIN 1000 UNITS/ML 10 ML INJ (23:07)
[2018-12-06] MEDS ORDERED: FUROSEMIDE 10 ML (23:07)
== END 2018-12-05 15:45 | disposition home or self-care (01) | DRG 291 ==
LOC: E/R 11:24 → 6WM 12-01 18:30 → ICU 13:17
PROVIDERS: Hospitalist
PROC: 5A1D70Z Performance of Urinary Filtration, Intermittent, Less than 6 Hours Per Day (ICD-10-PCS; principal; 2018-11-29)
PROC: 5A1D70Z Performance of Urinary Filtration, Intermittent, Less than 6 Hours Per Day (ICD-10-PCS; 2018-12-04)
DX: I13.0 Hypertensive heart and chronic kidney disease with heart failure and stage 1 through stage 4 chronic kidney disease, or unspecified chronic kidney disease (principal); N18.6 End stage renal disease; E87.2 Acidosis; N39.0 Urinary tract infection, site not specified; A15.9 Respiratory tuberculosis unspecified; E87.5 Hyperkalemia; I50.9 Heart failure, unspecified; I25.10 Atherosclerotic heart disease of native coronary artery without angina pectoris; D47.3 Essential (hemorrhagic) thrombocythemia; D63.1 Anemia in chronic kidney disease; K74.60 Unspecified cirrhosis of liver; K21.9 Gastro-esophageal reflux disease without esophagitis; B96.20 Unspecified Escherichia coli [E. coli] as the cause of diseases classified elsewhere; Z16.12 Extended spectrum beta lactamase (ESBL) resistance; Z99.2 Dependence on renal dialysis; Z88.0 Allergy status to penicillin
CPT/HCPCS: 36415; 71045; 80048; 80053; 80061; 81001; 82962; 83036; 83605; 84439; 84443; 84484; 85025; 85610; 85730; 86704; 86709; 86803; 87040-91; 87081; 87086; 87116; 87340; 90935; 93005; 94664; 97110; 97116; 97162; 97530; 99291-25